=== PATIENT | female | born 1945 | race Caucasian/White ===

== ENCOUNTER → 2017-02-25 | Day surgery (SDC) | payer MEDICARE ==
[~2017-02-25] MED LIST: AMLODIPINE-BEN1 EAC3 PO; ASPIRIN81 M2 PO; EVISTA60 M1 PO; LIPITOR PO; LOTREL; METFORMIN HCL500 M1 PO; NEXIUM PO; NORMODYNE PO
--- NOTE | ~2017-02-25 | OR ---
Unit #: [id number] #: [id number] Patient: HUGO HANSON [id number] [address] [address] [id number] O MR#: [id number] NAME: HUGO HANSON ROOM: Date of Procedure: 02/25/2017 Admission Date: 02/25/2017 Surgeon: Steven Waggoner M.D. : 1945 Attending Physician: Steven Waggoner M.D. Primary Care Physician: Murali Long M.D. PROCEDURE OPERATIVE NOTE PREOPERATIVE DIAGNOSES 1. Epigastric pain. 2. Nausea. 3. Postprandial bloating. POSTOPERATIVE DIAGNOSIS Mild gastritis. PROCEDURE PERFORMED Esophagogastroduodenoscopy to the third portion of the duodenum with antral biopsy x1. SURGEON Steven Waggoner M.D. ANESTHESIA Monitored anesthesia. INDICATIONS Ms. Hanson is a 71-year-old female, who came to the office complaining of postprandial epigastric pain, nausea, and bloating. She had a previous history of H. pylori colonization. She also is diabetic and is at risk for gastroparesis. Gastric emptying scan has been ordered but is still pending at this time. PROCEDURE The patient was admitted to [facility], positively identified, and transported to the endoscopy suite. After appropriate monitoring and positioning, she was sedated by the anesthesiologist. Bite block had been placed, so the endoscope was passed through the oral cavity and the esophagus. Under direct vision, I passed through the esophagus into the stomach, insufflated the stomach and passed through the pylorus down to the third portion of the duodenum. The duodenum and duodenal bulb were normal. In the antrum, she had some mild erythema so a biopsy for SARA testing was performed. In retroflexing the scope above the incisura, no other significant findings in the upper fundus or cardia were noted. As we came back in a retrograde fashion, she had a possible 2 cm hiatal hernia but the GE junction was well demarcated with no esophagitis, no Lewis's mucosa. Esophageal mucosa was normal throughout and the larynx was normal. The patient tolerated the procedure well and was transported to recovery in stable condition. We will await the results of the SARA test and the gastric emptying scan before proceeding with any further Unit #: [id number] #: [id number] Patient: HUGO HANSON evaluation or treatment. Dictated by... Za Chavez/rebecca TD: 02/25/2017 08:59 JOB #: [id number] PROCEDURE OPERATIVE NOTE Page 1 of 1 X Steven Waggoner MD PROCEDURE OPERATIVE NOTE
== END | disposition home or self-care (01) ==
LOC: COPS 05:13
DX: K29.70 Gastritis, unspecified, without bleeding (principal); R14.0 Abdominal distension (gaseous); E11.9 Type 2 diabetes mellitus without complications; K21.9 Gastro-esophageal reflux disease without esophagitis; M19.90 Unspecified osteoarthritis, unspecified site; E78.5 Hyperlipidemia, unspecified; I10 Essential (primary) hypertension; R63.4 Abnormal weight loss; Z85.3 Personal history of malignant neoplasm of breast; Z79.84 Long term (current) use of oral hypoglycemic drugs; Z79.82 Long term (current) use of aspirin; Z90.11 Acquired absence of right breast and nipple; Z79.899 Other long term (current) drug therapy; Z98.890 Other specified postprocedural states
CPT/HCPCS: 82947; 87077

== ENCOUNTER → 2017-03-02 | Outpatient (CLI) | payer MEDICARE ==
--- NOTE | ~2017-03-02 | NM19 ---
[facility] A Service of [facility] RADIOLOGY TEXT RESULTS PATIENT: HUGO CHILD LOCATION: [facility] : 43 UNIT #: [id number] AGE: [address]: Steven Waggoner MD SEX: F ORDER DR: [id number] [facility] [address] [place], [place] [address] [id number] O MR#: [id number] Acc #: [id number] NAME: HUGO CHILD : 1945 SEX: F STUDY DATE/TIME: 03/02/2017 8:36 UNIT: [facility] ROOM: STUDY DESCRIPTION: TX Gastric Emptying Study Attending Physician: Steven Waggoner M.D. Referring Physician: Steven Waggoner M.D. Ordering Physician: Steven Waggoner M.D. Primary Care Physician: Murali Long M.D. MEDICAL IMAGING REPORT This report is preliminary unless electronic signature is present EXAM Gastric emptying scan 03/02/2017 HISTORY Right upper quadrant abdominal pain radiating to the left upper quadrant. Epigastric pressure and gurgling with cramping and diarrhea. Early satiety and acid reflux. Symptoms for 4 months. FINDINGS The patient ingested 577 microcuries of technetium 99m tagged sulfur colloid in eggs. Images of the upper abdomen were obtained for 75 minutes. The gastric half emptying time was 59 minutes (normal is between 65 and 90 minutes). IMPRESSION Rapid gastric half emptying time of 59 minutes. Dictated by... Harjinder Valadez M.D. THIS IS AN ELECTRONICALLY VERIFIED REPORT Harjinder Valadez M.D. at 03/03/2017 9:02 AM SAURABH/alexandra TD: 03/02/2017 13:09 JOB #: [id number] MEDICAL IMAGING REPORT Page 1 of 1 COPY
== END | disposition home or self-care (01) ==
LOC: CNUC 07:23
DX: R10.9 Unspecified abdominal pain (principal)
CPT/HCPCS: 78264; A9541

== ENCOUNTER → 2017-04-01 | Day surgery (SDC) | payer MEDICARE ==
--- NOTE | ~2017-04-01 | OR ---
Unit #: [id number] #: [id number] Patient: HUGO HANSON [id number] [address] [address] [id number] O MR#: [id number] NAME: HUGO HANSON ROOM: Date of Procedure: 04/01/2017 Admission Date: 04/01/2017 Surgeon: Steven Waggoner M.D. : 1945 Attending Physician: Steven Waggoner M.D. Primary Care Physician: Murali Long M.D. OPERATIVE REPORT PREOPERATIVE DIAGNOSIS Chronic diarrhea. No prior endoscopic evaluation. POSTOPERATIVE DIAGNOSIS Sigmoid diverticulosis. PROCEDURE PERFORMED Colonoscopy to cecum. ANESTHESIA Monitored anesthesia. INDICATIONS FOR PROCEDURE Ms. Hanson is a 71-year-old female who has been complaining of some chronic diarrhea and laboratory evaluation was unremarkable. The patient also states she has never had a complete colonoscopy due to her inability to tolerate a prep and the difficulty of the examination. Her upper GI symptoms have been controlled and she was able to tolerate the prep, so, we plan on evaluating her colon for her chronic diarrhea as well as doing a colorectal cancer screening. DESCRIPTION OF PROCEDURE The patient was admitted to [facility], positively identified, and transported to the endoscopy unit. After appropriate monitoring and positioning, she was sedated by the nurse needle grinder. On rectal examination, there was no local anorectal pathology and digital exam was normal. Colonoscope was passed through the anal verge into a very tortuous sigmoid colon with severe diverticulosis, but we were able to negotiate the sigmoid colon and passed the scope all the way to the cecum where the appendiceal orifice and ileocecal valve were photo-documented. On careful antegrade and retrograde visualization, there were no polyps throughout the colon. From 40 cm to approximately 12 cm, she did have severe diverticular disease as a very tortuous sigmoid colon. Rest of the endoscopic evaluation was unremarkable. There was no evidence of any colitis. In the rectal vault, there was no internal hemorrhoidal disease. The patient tolerated the procedure well and was transported to recovery room in stable condition. Findings were discussed with the patient and her . At this time, we recommended a high-fiber diet to help with her colon function and also recommended a fiber supplement as well. However, she is on metformin and has a high incidence of diarrhea, so some of her abnormal stool may be in fact due to her medication. She does not need another cancer screening for 10 years. Unit #: [id number] #: [id number] Patient: HANSON,HUGO Tanya Dictated by... Za Chavez/nadeen TD: 04/02/2017 02:36 JOB #: [id number] OPERATIVE REPORT Page 1 of 1 X Steven Waggoner MD X PROCEDURE OPERATIVE NOTE
== END | disposition home or self-care (01) ==
LOC: COPS 05:53
DX: K57.30 Diverticulosis of large intestine without perforation or abscess without bleeding (principal); K56.2 Volvulus; M19.90 Unspecified osteoarthritis, unspecified site; K21.9 Gastro-esophageal reflux disease without esophagitis; I10 Essential (primary) hypertension; E11.9 Type 2 diabetes mellitus without complications; E78.5 Hyperlipidemia, unspecified; R63.4 Abnormal weight loss; Z68.31 Body mass index [BMI] 31.0-31.9, adult; Z85.3 Personal history of malignant neoplasm of breast; Z79.82 Long term (current) use of aspirin; Z79.84 Long term (current) use of oral hypoglycemic drugs; Z79.899 Other long term (current) drug therapy; Z98.51 Tubal ligation status; Z90.11 Acquired absence of right breast and nipple; Z98.890 Other specified postprocedural states
CPT/HCPCS: 82947